=== PATIENT | female | born 1990 | race Caucasian/White ===

== ENCOUNTER 2016-06-04 08:50 | Emergency (ER) | payer OTHER ==
[2016-06-04] MEDS ORDERED: DEXAMETHASONE 10 MG/ML VIAL PO STA (09:39)
[2016-06-04] MEDS ORDERED: CHERRY SYRUP 10 ML UDC PO ONE (09:47)
[2016-06-04] MEDS ORDERED: DEXAMETHASONE 10 MG/ML VIAL ONE (09:47)
== END 2016-06-04 09:53 | disposition home or self-care (01) ==
DX: J01.00 Acute maxillary sinusitis, unspecified (principal); H66.91 Otitis media, unspecified, right ear; J45.901 Unspecified asthma with (acute) exacerbation
CPT/HCPCS: 99283; A9270

== ENCOUNTER 2016-06-15 18:18 | Emergency (ER) | payer OTHER ==
[2016-06-15] MEDS ORDERED: DEXAMETHASONE 10 MG/ML VIAL PO STA (19:18)
[2016-06-15] MEDS ORDERED: IBUPROFEN 800 MG TABLET PO STA (19:18)
[2016-06-15] MEDS ORDERED: CHERRY SYRUP 10 ML UDC PO ONE (19:20)
[2016-06-15] MEDS ORDERED: IBUPROFEN 800 MG TABLET PO ONE (19:20)
[2016-06-15] MEDS ORDERED: DEXAMETHASONE 10 MG/ML VIAL ONE (19:20)
== END 2016-06-15 19:31 | disposition home or self-care (01) ==
DX: H66.006 Acute suppurative otitis media without spontaneous rupture of ear drum, recurrent, bilateral (principal); J02.9 Acute pharyngitis, unspecified
CPT/HCPCS: 99283; A9270